=== PATIENT | female | born 1960 | race Caucasian/White ===

== ENCOUNTER 2017-03-16 06:02 | Inpatient (IN) ==
[2017-03-16] MEDS ORDERED: Lidocaine -MPF 1% 2 ML VIAL ID ONE (06:26)
[2017-03-16] MEDS ORDERED: CeFAZolin Syr 2,000MG/20 ML 2,000 MG/20 ML SYRINGE IVPB ONE (06:26)
[2017-03-16] MEDS ORDERED: Vancomycin 1,500 MG in D5% in Water 250 ML IVPB ONE ×2 (06:42→07:00)
[2017-03-16] MEDS: Ringers Solution, Lactated 1,000 ML IVC SCH ×2 (06:44→14:04)
--- NOTE | 2017-03-16 06:59 | Anesthesia Evaluation PreOp ---
Date of Encounter: 03/16/17 Time of Encounter: 06:57 - Past History Planned Operation: Left ESWL Anesthesia History: Past Anesthesia Alcohol Use: none Drug use: none Medications and Allergies 3 Allergy/AdvReac Type Severity Reaction Status Date / Time No Known Allergies Allergy Verified 12/17/16 08:33 - Meds/Allergy Pre-op Review Medications Reviewed: Yes Allergies Reviewed: Yes Beta Blockers on Current Med List: No Anesthesia Results - Labs Laboratory Tests 03/09/17 03/09/17 03/09/17 14:20 14:20 14:20 WBC 8.1 Hgb 13.7 Hct 42.6 Plt Count 294 PT 11.2 INR 1.0 APTT 28.4 Sodium 141 Potassium 3.7 BUN 17 Creatinine 0.78 - Imaging EKG: report reviewed (03/09/2017 SINUS RHYTHM INDETERMINATE AXIS LOW QRS VOLTAGE IN PRECORDIAL LEADS PATTERN CONSISTENT WITH PULMONARY DISEASE SLOW R WAVE PROGRESSION) Anesthesia Exam O2 Sat Height 1.52 m Height 1.52 m Height 1.52 m Weight 102.058 kg Weight 102.058 kg Weight 102.058 kg O2 Sat by Pulse Oximetry 90 O2 Sat by Pulse Oximetry 90 Vital Signs Temp Pulse Resp BP Pulse Ox 98.3 F 76 18 131/87 90 03/16/17 06:32 03/16/17 06:32 03/16/17 06:32 03/16/17 06:32 03/16/17 06:32 Height: 5' Weight: 225 lbs NPO (# of Hours): 8 Pain Scale: 0 Pain Scale Used: Numeric (1 - 10)
--- NOTE | 2017-03-16 07:05 | Anesthesia Evaluation PreOp ---
Date of Encounter: 03/16/17 Time of Encounter: 07:03 - Past History Planned Operation: Postrerior Lumbar Fusion L2-4 Cardiac History: HTN Pulmonary History: Former smoker (Quit 405 years ago) DIRECTOR OF THERAPY SERVICES History: Denies Any Significant HX Other Medical History: Diabetes Type II Anesthesia History: No Prior Anesthetic Complications, Past Anesthesia ( Bilaterl Hip sx, c/s) : No Alcohol Use: none Drug use: none Medications and Allergies 3 Allergy/AdvReac Type Severity Reaction Status Date / Time No Known Allergies Allergy Verified 12/17/16 08:33 - Meds/Allergy Pre-op Review Medications Reviewed: Yes Allergies Reviewed: Yes Beta Blockers on Current Med List: No Anesthesia Results - Labs Laboratory Tests 03/09/17 03/09/17 03/09/17 14:20 14:20 14:20 WBC 8.1 Hgb 13.7 Hct 42.6 Plt Count 294 INR 1.0 Sodium 141 Potassium 3.7 Chloride 103 Carbon Dioxide 28 BUN 17 Creatinine 0.78 - Imaging EKG: report reviewed (SR) Anesthesia Exam O2 Sat Height 1.52 m Height 1.52 m Height 1.52 m Weight 102.058 kg Weight 102.058 kg Weight 102.058 kg O2 Sat by Pulse Oximetry 90 O2 Sat by Pulse Oximetry 90 Vital Signs Temp Pulse Resp BP Pulse Ox 98.3 F 76 18 131/87 90 03/16/17 06:32 03/16/17 06:32 03/16/17 06:32 03/16/17 06:32 03/16/17 06:32 Height: 5'2'' Weight: 225# NPO (# of Hours): > 8 hrs Pain Scale: 0 Pain Scale Used: Numeric (1 - 10) - HEENT Pupil (Motor): Pupils equal, EOMI Mallampati: III Teeth: Missing Denture Type: Upper: Complete Oral Opening: Greater than 3 - DIRECTOR OF THERAPY SERVICES LOC: Oriented DIRECTOR OF THERAPY SERVICES Motor: Normal RUE, Normal LUE, Normal RLE, Normal LLE, Normal Face DIRECTOR OF THERAPY SERVICES Sensory: Normal: RUE, LUE, RLE, LLE, Face - Cardiac Rhythm: Regular Murmur: None JVD: No Carotid Bruit: No - Pulmonary Breath Sounds: bilateral Clear Respiratory Effort: Symmetrical Anesthesia Assess/Plan ASA Score: 3 Modified Esme Scale for Level of Consciousness: Cooperative, oriented, and tranquil Anesthetic Plan: General Autologous Blood: Yes Monitoring Plan: Standard Monitors Recovery Plan: PACU
[2017-03-16] MEDS ORDERED: Acetaminophen IV 1,000 MG/100 ML INFUS..BTL ONE (07:36)
[2017-03-16] MEDS ORDERED: Dexmedetomidine HCl 200 MCG/50 ML MLS IVC ONE (07:36)
--- NOTE | 2017-03-16 07:41 | History & Physical Report ---
Date of Encounter: 03/16/17 Time of Encounter: 07:40 24 Hour HP Update - Instructions Instructions: If the History and Physical is less than 30 days old and was completed prior to A.M. admission and or procedure and has NOT been updated on calendar day of procedure please complete this update prior to performing procedure. - Update Patient reports changes in Medical Condition: No Changes in examination, assessment, or condition: No Changes in Medication: No Preop tests/diagnostics Reviewed: Yes Pre-Op MRSA Screen: Positive, Vancomycin for Prophylaxis Surgery Remains Indicated: Yes Consent for Planned Operative Procedure(s) Verified: Yes - Pre-Operative Checklist Preoperative Checklist Indicated: No Prophylactic Antibiotic Ordered: Yes Home Medications Include Beta Sherri: No Beta Sherri Taken Today (Day of Surgery): No Beta Sherri Taken Yesterday (Day Prior to Surgery): No Is VTE Prophylaxis Indicated?: Yes
[2017-03-16] MEDS ORDERED: Ketamine *HR* 500 MG/10 ML MDV ONE (07:42)
[2017-03-16] MEDS ORDERED: *HR* FentaNYL (PF) 100 MCG/2 ML VIAL ONE (07:42)
[2017-03-16] MEDS ORDERED: *HR* Propofol 200 MG/20 ML VIAL IVP ONE ×3 (07:43→11:14)
[2017-03-16] MEDS ORDERED: *HR* Midazolam HCl 2 MG/2 ML VIAL ONE (07:43)
[2017-03-16] MEDS ORDERED: Bacitracin 50,000 UNIT, Polymyxin B Sulfate 500,000 UNIT, Sodium Chloride IRRigation 1,... IR ONE (07:45)
[2017-03-16] MEDS ORDERED: Lidocaine -MPF 2% 2 ML VIAL ONE (07:46)
[2017-03-16] MEDS ORDERED: *HR* Succinylcholine 200 MG/10 ML VIAL IVP ONE (07:53)
[2017-03-16] MEDS ORDERED: *HR* Rocuronium Bromide 50 MG/5 ML VIAL ONE (07:53)
[2017-03-16] MEDS ORDERED: Propofol 500 MG/50 ML INFUS..BTL ONE (08:01)
[2017-03-16] MEDS ORDERED: *HR* Phenylephrine 10 MG/ML VIAL ONE (08:18)
[2017-03-16] MEDS ORDERED: Ondansetron 4 MG/2 ML VIAL ONE (08:49)
[2017-03-16] MEDS ORDERED: Dexamethasone 4 MG/ML VIAL ONE (08:49)
[2017-03-16] MEDS ORDERED: Ondansetron 4 MG/2 ML VIAL IVP PRN ×2 (09:30→14:13)
[2017-03-16] MEDS ORDERED: *HR* Labetalol 20 MG/4 ML SYRINGE IVP PRN (09:30)
[2017-03-16] MEDS ORDERED: *HR* HYDROmorphone (PF) 1 MG/ML SYRINGE IVP PRN (09:30)
[2017-03-16] MEDS ORDERED: *HR* Magnesium Sulfate 1 GM/2 ML VIAL ONE (09:51)
[2017-03-16] MEDS ORDERED: Ketorolac 30 MG/ML VIAL ONE (10:24)
[2017-03-16] MEDS ORDERED: Neostigmine Methylsulfate 3 MG/3 ML SYRINGE ONE (11:28)
[2017-03-16] MEDS ORDERED: *HR* HYDROmorphone 2 MG/ML SYRINGE ONE (12:01)
--- NOTE | 2017-03-16 12:16 | Orthopedic Operative Note ---
Date of procedure: 03/16/17 Pre-op diagnosis: Spondylolisthesis, lumbar stenosis Post-op diagnosis: same Operation/Findings: Posterior lumbar interbody fusion L2-L4: The patient successfully underwent general endotracheal anesthesia. The patient was given antibiotics prior to the start of the procedure. Compression boots and stockings were used for deep vein thrombosis prophylaxis. A Sandra catheter was placed. Leads for neuro monitoring were placed on the upper and lower extremities. This included the cranium. The neuro monitoring personnel confirmed there were satisfactory readings prior to the start of the procedure. The patient was turned prone on the Oc table. The back was prepped and draped in the usual sterile fashion. An incision was was marked and centered over the involved L2-L4 levels in the mid line. The incision was deepened through the lumbar fascia. Bovie cautery and Paige elevators were used to reflect the paraspinal musculature at the lateral extent of the transverse processes of the involved L2 , L3, and L4 levels. Ghazal clamps were placed over the L2, L3, and L4 spinous processes. An intraoperative lateral fluoroscopy graft was obtained. A conversation was held between the surgeon and radiologist and both confirmed we had the correct operative levels. We then placed pedicle screws in standard fashion with the aid of fluoroscopy and anatomic landmarks. Briefly a starter awl was used. A gearshift was subsequently used to enter the commuter pilot hole via a transpedicular route into the vertebral body. The commuter pilot hole was tapped with an undersized instrument, and subsequently six 6.5 x 40 mm pedicle screws were placed bilaterally at the indicated L2, L3, and L4 levels. The screws were tested with the aid of the neurologic monitoring staff via pedicle screw stimulation. All reading suggested there was no significant cortical wall breech. The screws were also evaluated fluoro- graphically and appeared to be in satisfactory position. We then turned our attention to the decompression portion of the procedure. We removed the supraspinous and interspinous ligaments and subsequently the insertion of the ligamentum flavum on the undersurface of the proximal L3 lamina was dislodged with a curette. We then removed the ligamentum flavum as well as undercut the L3-L4 facets at this L3- L4 level to decompress the lateral recesses. We also performed a L3 laminectomy. After the decompression, which was over and above that which was required to place the interbody graft, the foramen and traversing roots at this L3-L4 level were found to be free and patent. We also took part of the medial facets in order to aid in the decompression. We then protected the neural elements including the thecal sac and traversing nerve root on the right with a dural retractor. We made an annulotomy into the L3-L4 disc space and then removed the entire disc material using Pituitary instruments. We trialed various size grafts after the endplates were prepared for graft insertion. A 10 x 26 enter body graft fit well within the L3-L4 disc space. We obtained some bone from the right posterior superior iliac spine through us a separate incision and combined with this with the bone which we had saved from the laminectomy portion of the procedure. This autograft bone was first placed in the anterior portion of the L3-L4 disc space and additional bone was placed within the interbody graft spacer. We then placed the interbody graft spacer obliquely across the L3-L4 disc space towards the midline while protecting the neural elements with a root retractor. When the graft was found to be in satisfactory position the cold mill inspector was removed. We then turned our attention to the L2-3 level where we again removed intervening ligamentum flavum, performed in L2 laminectomy, undercut the L2-L3 facets at this level including medial facetectomies at L2-3. The exiting and traversing nerve root at this L2- 3 level was found to be decompressed and patent at the end of the decompression. This decompression was over and above that which was required to place the interbody graft. We then protected the thecal sac and nerve root with a dural retractor. We made an annulotomy into the L2-3 disc space and removed entire disc material. We then trialed an 8 x 26 mm graft which fit well. We prepared the endplates for graft insertion. We then packed the anterior portion of the L2-3 disc space with autograft bone. We then placed an 8 x 26 mm interbody spacer packed with bone obliquely across the L2-3 disc space. One was found to be in appropriate position, the cold mill inspector was removed. We then copiously irrigated the wound. We then decorticated the L2, L3, and L4 transverse processes as well as the L2-3 and L3-4 facet joints of the involved L2, L3, and L4 levels to aid in the posterolateral fusion. We placed autograft bone in the lateral gutters over these regions. We then placed rods within the screw heads of the involved levels and first locked the distal screws and then subsequently locked the proximal screws so as to improve and reduce the spondylolisthesis previously seen. We then closed the wound in layers with 1 Vicryl for the fascia, 2-0 Vicryl. Subcutaneous tissue, and Dermabond was used for skin closure. Sterile dressings were placed over the wound. The patient was turned supine on a hospital bed and extubated. All sponge instruments and needle counts were correct at the end of the procedure. The patient tolerated the procedure well without complications. Anesthesia: GETA Surgeon: Jonathan Jaeger Jr Was there an employment legal assistant present: No Estimated blood loss (cc): 300 Specimen: None Condition: stable Disposition: PACU
[2017-03-16] MEDS ORDERED: Acetaminophen 325 MG TABLET PO PRN (14:13)
[2017-03-16] MEDS ORDERED: Naloxone 0.4 MG/ML INJ IVP PRN (14:13)
[2017-03-16] MEDS ORDERED: Ringers Solution, Lactated 1,000 ML IVC SCH (14:13)
[2017-03-16] MEDS ORDERED: *HR* OxyCODONE Immed Rel 5 MG TABLET PO PRN (14:13)
[2017-03-16] MEDS: CeFAZolin Premix DUPLEX 2,000 MG/50 ML BAG IVPB SCH ×2 (15:06→23:54)
[2017-03-16] MEDS: *HR* Glimepiride 4 MG TABLET PO SCH (21:24)
[2017-03-16] MEDS: Pregabalin 50 MG CAPSULE PO SCH (21:25)
[2017-03-16] MEDS: *HR* Metformin 500 MG TABLET PO SCH (21:25)
[2017-03-16] MEDS: *HR* OxyCODONE Immed Rel 5 MG TABLET PO PRN (21:26)
[2017-03-17] MEDS: *HR* Morphine 2 MG/ML SYRINGE IVP PRN ×5 (00:35→21:25)
[2017-03-17] MEDS: *HR* OxyCODONE Immed Rel 5 MG TABLET PO PRN ×3 (04:09→20:19)
[2017-03-17] MEDS: *HR* Metformin 500 MG TABLET PO SCH ×2 (09:10→16:55)
[2017-03-17] MEDS: *HR* Glimepiride 4 MG TABLET PO SCH ×2 (09:10→20:19)
[2017-03-17] MEDS: *HR* SitaGLIPtin 100 MG TABLET PO SCH (09:10)
[2017-03-17] MEDS: Pregabalin 50 MG CAPSULE PO SCH ×2 (09:11→20:18)
[2017-03-17] MEDS: hydroCHLOROthiazide 25 MG TABLET PO SCH (09:11)
[2017-03-17] MEDS: Lisinopril 20 MG TABLET PO SCH (09:11)
--- NOTE | 2017-03-17 15:32 | Spine Progress Note ---
Date of Encounter: 03/17/17 Time of Encounter: 15:31 Subjective Principal diagnosis: Status post lumbar fusion Interval history: The patient is without complaints. Afebrile vital signs are stable. Dressing is clean dry and intact. Neurovascularly intact with regard to bilateral lower extremities. Fires all upper and lower extremity motor groups. Assessment : stable. Plan mobilize ,continue analgesics, discharge planning. Objective Vital signs: Vital Signs Temp Pulse Resp BP Pulse Ox 03/17/17 15:17 100.9 F H 104 20 99/62 94 03/17/17 11:25 99.2 F 97 20 115/64 92 03/17/17 07:01 98.5 F 86 18 107/64 98 03/17/17 04:12 98.3 F 89 18 105/67 97 03/16/17 23:00 99.0 F 85 18 134/69 96 03/16/17 19:16 98.8 F 83 16 97/60 95 03/16/17 17:29 98.0 F 74 16 100/66 94 03/16/17 16:09 98.7 F 74 17 99/67 94 Intake and Output 03/16/17 03/17/17 03/17/17 23:59 07:59 15:59 Intake Total 370 / 370 600 / 600 877 / 877 Output Total 150 / 150 2150 / 2150 Balance 220 / 220 -1550 / -1550 877 / 877 Intake: IV Fluids 50 / 50 877 / 877 Lactated Ringers 1,000 ML @ 100 877 / 877 mls/hr IVC .Q10H JEN Rx#: [id number] Ancef Premix DUPLEX 2,000 mg In 50 / 50 50 ml @ 100 mls/hr IVPB Q8HR JEN Rx#:[id number] Oral 320 / 320 600 / 600 Output: Catheter 150 / 150 2150 / 2150 Other: Meal Dinner Percent of Meal Consumed 50% Blood Glucose* 207 132 180 - Labs Labs: Abnormal lab results POC Glucose 180 (58-89) H 03/17/17 11:55 Consult Discharge Plan - Plan Referrals: Bimal Lowe [Primary Care Provider] -
[2017-03-18] MEDS: *HR* OxyCODONE Immed Rel 5 MG TABLET PO PRN ×3 (00:30→18:14)
[2017-03-18] MEDS: *HR* Morphine 2 MG/ML SYRINGE IVP PRN ×3 (06:18→20:45)
[2017-03-18] MEDS: hydroCHLOROthiazide 25 MG TABLET PO SCH (08:04)
[2017-03-18] MEDS: *HR* SitaGLIPtin 100 MG TABLET PO SCH (08:04)
[2017-03-18] MEDS: *HR* Glimepiride 4 MG TABLET PO SCH ×2 (08:04→20:45)
[2017-03-18] MEDS: Pregabalin 50 MG CAPSULE PO SCH ×2 (08:04→20:45)
[2017-03-18] MEDS: Lisinopril 20 MG TABLET PO SCH (08:04)
[2017-03-18] MEDS: *HR* Metformin 500 MG TABLET PO SCH ×2 (08:05→17:30)
[2017-03-18] MEDS: diazePAM 5 MG TABLET PO PRN (23:55)
[2017-03-19] MEDS: *HR* OxyCODONE Immed Rel 5 MG TABLET PO PRN ×4 (03:32→16:30)
[2017-03-19] MEDS: *HR* SitaGLIPtin 100 MG TABLET PO SCH (07:36)
[2017-03-19] MEDS: Pregabalin 50 MG CAPSULE PO SCH (07:36)
[2017-03-19] MEDS: *HR* Glimepiride 4 MG TABLET PO SCH (07:36)
[2017-03-19] MEDS: *HR* Metformin 500 MG TABLET PO SCH ×2 (07:36→16:39)
[2017-03-19] MEDS: hydroCHLOROthiazide 25 MG TABLET PO SCH (07:36)
[2017-03-19] MEDS: Lisinopril 20 MG TABLET PO SCH (07:36)
--- NOTE | 2017-03-19 08:08 | Spine Progress Note ---
Date of Encounter: 03/18/17 Time of Encounter: 08:07 Subjective Principal diagnosis: Status post lumbar fusion Interval history: The patient is without complaints. Afebrile vital signs are stable. Dressing is clean dry and intact. Neurovascularly intact with regard to bilateral lower extremities. Fires all upper and lower extremity motor groups. Assessment : stable. Plan mobilize ,continue analgesics, discharge planning. Objective Vital signs: Vital Signs Temp Pulse Resp BP Pulse Ox 03/19/17 07:37 98.1 F 91 16 116/64 97 03/19/17 04:59 99.2 F 93 18 134/77 98 03/19/17 00:49 98.4 F 88 17 105/54 97 03/18/17 18:52 99.5 F 100 18 101/63 93 03/18/17 09:48 98.4 F 93 16 98/56 96 Intake and Output 03/18/17 03/19/17 03/19/17 23:59 07:59 15:59 Intake Total 800 / 800 Balance 800 / 800 Intake: Oral 800 / 800 Other: # Voids 1 Blood Glucose* 169 150 - Labs Labs: Abnormal lab results POC Glucose 150 (58-89) H 03/19/17 07:35 Consult Discharge Plan - Plan Referrals: Bimal Lowe [Primary Care Provider] -
[2017-03-19] MEDS: diazePAM 5 MG TABLET PO PRN ×2 (08:44→16:41)
[2017-03-19 16:45] VITALS: BP 102/67
--- NOTE | 2017-03-19 18:21 | Discharge Summary ---
Date of Encounter: 03/19/17 Time of Encounter: 18:20 - Discharge Diagnosis (1) Spondylolisthesis Priority: Primary Status: Chronic Qualifiers: Spinal region: lumbar Qualified Code(s): M43.16 - Spondylolisthesis, lumbar region (2) Lumbar stenosis Priority: Secondary Status: Chronic Qualifiers: Neurogenic claudication status: without neurogenic claudication Qualified Code(s): M48.061 - Spinal stenosis, lumbar region without neurogenic claudication - Discharge Medications Prescriptions: diazePAM [Valium] 5 mg PO TID PRN #30 tablet PRN Reason: Spasms OxyCODONE Immed Rel [Roxicodone 5 MG] 5 mg PO Q4H PRN #30 tablet PRN Reason: Severe Pain Home Medications: Escitalopram [Lexapro] 20 mg PO DAILY 03/16/17 [History] Glimepiride [Amaryl] 4 mg PO BID 03/16/17 [History] HYDROcodone/Acet 5/325 mg [[place] 5-325 mg] 1 tab PO Q8H PRN 03/16/17 [History] Lisinopril [Zestril] 40 mg PO DAILY 03/16/17 [History] Metformin HCl [Glucophage] 1,000 mg PO BID 03/16/17 [History] Pregabalin [Lyrica] 100 mg PO BID 03/16/17 [History] Rosuvastatin Calcium 10 mg PO HS 03/16/17 [History] SitaGLIPtin [Januvia] 100 mg PO DAILY 03/16/17 [History] hydroCHLOROthiazide [Hydrochlorothiazide] 25 mg PO DAILY 03/16/17 [History] OxyCODONE Immed Rel [Roxicodone 5 MG] 5 mg PO Q4H PRN #30 tablet 03/19/17 [Rx] diazePAM [Valium] 5 mg PO TID PRN #30 tablet 03/19/17 [Rx] Allergies/Adverse Reactions: 3 Allergy/AdvReac Type Severity Reaction Status Date / Time No Known Allergies Allergy Verified 03/16/17 07:30 Labs on day of discharge: Labs from last 24 hours 03/19/17 03/18/17 07:35 20:36 POC Glucose 150 H 169 H - Impressions ITS Impressions Lumbar Spine X-Ray 03/16/17 08:35 IMPRESSION: L2 through L4 posterior fusion. D/ / 03/16/2017 14:42:34 Lopez Santillan MD / earnold Interpreting Provider: Lopez Santillan MD Lumbar Spine X-Ray 03/19/17 08:17 IMPRESSION: Recent postsurgical changes at L2-4. No other significant finding. D/ / Kiran Perez MD / Kiran Perez MD Interpreting Provider: Kiran Perez MD Date of admission: 03/16/17 14:18 Primary care physician: Bimal Lowe Consults: 03/16/17 14:13 Consult to Occupational Therapy [CONS] Routine Comment: Evaluate, develop and implement POC Reason for Consult: Postoperative rehabilitation Consult to Physical Therapy [CONS] Routine Comment: Evaluate, develop and implement POC Reason for Consult: Postoperative rehabilitation Consult to Spine Navigator [CONS] [CONS] Routine 03/19/17 07:13 Consult to Alcohol Law Enforcement Agent [CONS] Routine Reason for SW Consult: DC planning - Patient Status Disposition: Home Health Service Condition: Fair Functional capacity at discharge: uses cane/walker Overall status at discharge: patient is progressing back to baseline - Discharge Instructions Follow Up With: Nancy Hanna PAC [Physician Bakery Decorator] - 03/30/17 2:30 pm Additional Instructions: Discharge Instructions: Lumbar Please call [facility] ([phone]), your Primary Care Physician, or report to the ER if you have any of the following symptoms: Fever greater that 101.5, increased pain/redness/drainage/odor for your incision site or any other concerning symptoms. ACTIVITY * May Shower * No Tub Baths * No lifting greater than 10 pounds * No Smoking * No Swimming * No off Ground Activities (Running, Climbing, Ladders, Horseback Riding) * No Driving * Wear Back Brace when up walking if lumbar fusion done MEDICATIONS: Upon discharge resume your home medications. Take all the medications as prescribed. Take a stool softener if taking narcotic pain medications. Stool softeners are only effective if you drink enough fluids. Drink 6-8 glass of water or fluids a day, unless this is not allowed for another health problem. Despite using stool softeners, if you haven't had a bowel movement in 3 days, please switch to a gentle laxative. Gentle laxatives are sold over the counter. You should have a bowel movement within 24 hours, if not call the office. You will be discharged from the hospital with a prescription for pain medication. You are encouraged to decrease the use of narcotic pain medication as tolerated. Should you require a refill, please call the office. It is best to call 48-72 hours in advance of needing a prescription refill so you don't run out of medication. WOUND CARE: Remove Dressing Tomorrow. Leave incision open to air. Pat dry when you get out of the shower. FOLLOW-UP: Please follow up with your surgeon in the orthopedic clinic in 2 weeks from the day of surgery. References: [employer] (www.[email or web address]) - Diet and Activity Activity: as per physical therapy Diet: advance to your usual diet - Hospital Course Hospital course: Ms. Anderson is a 57 year old female The patient had an uneventful postoperative course. Progressed from intravenous analgesic needs to oral analgesic needs only. Remained neurovascularly intact and mobilized satisfactorily. All intraoperative and/or postoperative radiographic studies were satisfactory. Patient is discharged with plan for rehabilitation and follow-up in 2 weeks post discharge on analgesic medication and patient's home medications. - Time Spent with Patient Total time spent providing and/or coordinating discharge services: - VTE Documentation of Mechanical Device: Intermittent pneumatic compression device
== END 2017-03-19 19:00 | disposition home health service (06) | DRG 460 ==
LOC: SAMDAY 06:02 → 3NENU 14:18
PROVIDERS: ADMIT Orthopaedic Surgery Orthopaedic Surgery of the Spine; ATTEND Orthopaedic Surgery Orthopaedic Surgery of the Spine